=== PATIENT | female | born 1960 | race Caucasian/White ===

== ENCOUNTER 2018-06-22 13:06 | Inpatient (IN) | payer OTHER ==
[~2018-06-22] VITALS: Ht 160 cm; Wt 110.9 kg
--- NOTE | ~2018-06-22 | EC ---
PATIENT:DENISE VILLANUEVA DATE OF SERVICE: 06/22/18 SEX: F MEDICAL RECORD: [id number] DATE OF : 62 LOCATION:D.M2 D.211 AGE OF PATIENT: 57 ADMISSION DATE: 06/22/18 REFERRING PHYSICIAN: INTERPRETING PHYSICIAN: JOSE BENOIT MD ECHOCARDIOGRAM REPORT ECHO CHARGES 4 ECHO COMPLETE Date: 06/24/18 CLINICAL DIAGNOSIS: CP ECHOCARDIOGRAPHIC MEASUREMENTS (adult normal given) AC root (d.<3.7cm) 3.6 cm LV Septum d (<1.2 cm> 1.9 cm Valve Excursion 2.2 cm LV Septum (systole) 2.3 cm Left Atria (s.<4.0cm> 3.4 cm LVPW d(<1.2cm) 1.6 cm RV (d.<2.3cm) 1.9 cm LVPW (sytole) 2.3 cm LV diastole(<5.6CM) 3.7 cm MV E-F(>70mm/sec) cm LV systole 2.4 cm LVOT Diameter 2.2 cm MV exc.(>10mm) cm Est.ejection fraction (50-75%) % DOPPLER: LVIT cm/sec A 89.0 cm/sec E 56.0 cm/sec LA cm/sec RVSP mmHg LVOT 150 cm/sec AOP1/2T m/s Asc. Ao 159 cm/sec RVOT 95.0 cm/sec RA cm/sec PA 122 cm/sec AV Gradient Peak 10.1 mmHg AV Mean 4.2 mmHg AV Area 3.3 cm MV Gradient Peak 3.6 mmHg MV Mean 1.6 mmHg MV Area cm COMMENTS: Preparer Making Department: 1 ROBERTH COLEDSOE Housekeeping Room Attendant: 1 Dr. Benoit TAPE# PACS Pericardial Effusion N DATE OF SERVICE: 06/24/2018 PROCEDURE: Echocardiogram. FINDINGS: 1. Left ventricular chamber size is within normal limits. Left ventricular systolic function is normal. Overall ejection fraction estimated at 55%. 2. Left atrium, right atrium, and right ventricle chamber sizes are within normal limits. 3. Valvular structures have normal structure and motion. ECHOCARDIOGRAM REPORT [id number] DENISE VILLANUEVA 4. Doppler interrogation reveals no significant valvular insufficiency or stenosis. 5. No evidence of pericardial effusion or left ventricular thrombus. TRANSINT:[id number] Voice Confirmation ID: [id number] DOCUMENT ID: [id number] JOSE BENOIT MD CC: [id number] DICTATION DATE: 06/24/18 1122 AGRONOMY TEACHER: 06/24/18 1202 ADM IN [place] [id number] [place] [id number]
--- NOTE | ~2018-06-22 | MORECARE ---
CASE MANAGEMENT DISCHARGE SUMMARY PATIENT: DENISE VILLANUEVA UNIT: [id number] ADM DATE: 06/22/18 AGE: 57 : 62 SEX: F ROOM/BED: D.0834 AUTHOR: DEEP MCRAE PHYSICIAN: REFERRING PHYSICIAN: RAVIN BAJWA MD DATE OF SERVICE: 06/29/18 Discharge Plan Patient Name: DENISE VILLANUEVA Facility: [facility]:[place] : 1960 Planned Disposition: Home Anticipated Discharge Date: 06/27/18 Discharge Date: 06/27/2018 Expected LOS: 5 Initial Reviewer: [email or web address] Initial Review Date: 06/29/2018 Generated: 06/29/18 11:20 am Patient Name: DENISE VILLANUEVA Page 31512 at 1020 All edits/amendments must be made on the electronic document DICTATION DATE: 06/29/18 1019 RETINA SUBSPECIALIST: LINDSAY 06/29/18 1019 RPT#: [id number] DC DATE:06/27/18 STATUS: DIS IN [facility] [address] [place] [address] END OF REPORT
--- NOTE | ~2018-06-22 | ST ---
PATIENT:DENISE VILLANUEVA MEDICAL RECORD: [id number] SEX: F LOCATION:[facility] D211 ORDER #: ADMISSION DATE: 06/22/18 AGE OF PATIENT: 57 REFERRING PHYSICIAN: INTERPRETING PHYSICIAN: JOSE BEARD MD DATE OF SERVICE: PROCEDURE: Nuclear stress test. INDICATION: Chest pain of unknown etiology. DESCRIPTION: She was exercised on standard Lexiscan protocol with 26 mCi injected at peak stress, 8 mCi were used previously for rest images. FINDINGS: Gated SPECT reveals preserved ejection fraction at 81% with good wall motion and thickening and brightening throughout all segments. SPECT imaging Cardiolite was used as myocardial fusion agent. There is homogeneous uptake throughout all segments at rest and stress with no evidence of inducible ischemia or previous infarction. OVERALL IMPRESSION: 1. This is a normal nuclear stress test with no evidence of inducible ischemia or previous infarction. 2. Gated SPECT reveals a preserved ejection fraction at 81%. In this patient with ongoing symptomatology, the current scan does not suggest the presence of hemodynamically significant coronary artery disease. Evaluate noncardiac etiology of chest pain. TRANSINT:[id number] Voice Confirmation ID: [id number] DOCUMENT ID: [id number] JOSE BEARD MD CC: [id number] DICTATION DATE: 06/26/18 1429 CHRISTMAS TREE GRADER: 06/27/18 0142 ADM IN [facility] [address] [place] [address]
--- NOTE | ~2018-06-22 | MORECARE ---
CASE MANAGEMENT DISCHARGE SUMMARY PATIENT: DENISE VILLANUEVA UNIT: [id number] ADM DATE: 06/22/18 AGE: 57 : 62 SEX: F ROOM/BED: D.1453 AUTHOR: DEEP MCRAE PHYSICIAN: REFERRING PHYSICIAN: RAVIN BAJWA MD DATE OF SERVICE: 06/29/18 Discharge Plan Patient Name: DENISE IVLLANUEVA Facility: [facility]:[place] : 1960 Planned Disposition: Home Anticipated Discharge Date: 06/27/18 Discharge Date: 06/27/2018 Expected LOS: 5 Initial Reviewer: [email or web address] Initial Review Date: 06/29/2018 Generated: 06/29/18 11:29 am Last DP export: 06/29/18 9:20 Patient Name: DENISE VILLANUEVA Page 99202 at 1029 All edits/amendments must be made on the electronic document DICTATION DATE: 06/29/18 1029 RESEARCH AND DEVELOPMENT TECHNICIAN: LINDSAY 06/29/18 1029 RPT#: [id number] DC DATE:06/27/18 STATUS: DIS IN [facility] [address] [place] [address] END OF REPORT
[~2018-06-22 13:06] MED LIST: ADDERALL 30 MG30 MG PO; ALDACTONE100 MG PO; APRISO0.375 GM PO; ARMOUR THYROID90 MG PO; BUPROPION XL300 MG PO; PROMETRIUM200 MG PO; PROTONIX40 MG PO; VICTOZA INJ; VITAMIN D31000 UNI2 PO; [UNRECOGNIZED DRUG - OTHER] PO
[2018-06-22] MEDS ORDERED: CARDURA1 MG PO (13:34)
[2018-06-22] MEDS ORDERED: GLUCOTROL 5 MG T5 MG PO (13:34)
[2018-06-22] MEDS ORDERED: METHOTREXATE2.5 MG PO (13:35)
[2018-06-22] MEDS ORDERED: FOLIC ACID1 MG PO (13:35)
[2018-06-22] MEDS ORDERED: GEMFIBROZIL600 MG PO (13:35)
[2018-06-22] MEDS ORDERED: REQUIP3 MG PO (13:35)
[2018-06-22 15:13] LABS: BASOPHILS 0.7 % (0-2); HEMATOCRIT 35.3 % (36.0-48.0); HEMOGLOBIN 11.4 g/dL (12-16); LYMPHOCYTES 20.1 % (15-50); MCH 29.5 pg (26.0-34.0); MCHC 32.3 g/dL (31.0-37.0); MCV 91.2 fL (80.0-100.0); MEAN PLATELET VOLUME 8.9 fL (7.4-10.4); MONOCYTES 11.9 % (2-11); NEUTROPHILS 61.3 % (40-80); RBC 3.87 10x6/uL (4.00-5.40); RDW 15.8 % (11.5-14.5); WBC 9.8 10x3/uL (4.8-10.8)
[2018-06-22 15:20] LABS: PLATELET COUNT 423 10x3/uL (130-400)
[2018-06-22 15:41] LABS: ALKALINE PHOSPHATASE 108 U/L (46-116); ALT (SGPT) 23 U/L (10-68); BILIRUBIN - TOTAL 0.34 mg/dL (0.2-1.3); CALC OSMOLALITY 274 mosm/kg (275-300); CALCIUM 9.7 mg/dL (8.5-10.1); CARBON DIOXIDE 24.6 mmol/L (21.0-32.0); CHLORIDE - SERUM 101 mmol/L (98-107); CREATININE - SERUM 1.2 mg/dL (0.6-1.3); GLUCOSE 76 mg/dL (74-106); POTASSIUM - SERUM 4.2 mmol/L (3.5-5.1); PROTEIN - SERUM 8.7 g/dL (6.4-8.2); SODIUM 138 mmol/L (136-145); UREA NITROGEN 13 mg/dL (7-18); eGFR NON AFRICAN AMERICAN 49 mL/min (90-120)
[2018-06-22 15:48] LABS: MAGNESIUM - SERUM 1.9 mg/dL (1.8-2.4); TROPONIN-I < 0.017 ng/mL (0.000-0.060)
[2018-06-22 17:45] VITALS: BP 120/73
[2018-06-22 18:00] VITALS: BP 131/96
[2018-06-22 19:57] VITALS: BP 151/100
[2018-06-22 20:00] VITALS: BP 133/75; BP 141/89
[2018-06-22 23:09] VITALS: BP 141/89; BMI 44.5
[2018-06-23] VITALS: BP 131/78
[2018-06-23 05:49] LABS: ANION GAP 17.5 mmol/L (8-16); CALCIUM 9.5 mg/dL (8.5-10.1); CARBON DIOXIDE 24.6 mmol/L (21.0-32.0); CREATININE - SERUM 1.2 mg/dL (0.6-1.3); POTASSIUM - SERUM 4.1 mmol/L (3.5-5.1)
[2018-06-23 06:47] LABS: BASOPHILS 0.1 % (0-2); EOSINOPHILS 0 % (0-7); HEMOGLOBIN 11.2 g/dL (12-16); IMMATURE GRANULOCYTES 0.5 % (0-5); LYMPHOCYTES 9.3 % (15-50); MCH 29.4 pg (26.0-34.0); MCHC 32.9 g/dL (31.0-37.0); MEAN PLATELET VOLUME 8.9 fL (7.4-10.4); MONOCYTES 7.2 % (2-11); NEUTROPHILS 82.9 % (40-80); PLATELET COUNT 406 10x3/uL (130-400); RBC 3.81 10x6/uL (4.00-5.40); RDW 15.4 % (11.5-14.5)
[2018-06-23 06:51] LABS: MCV 89.2 fL (80.0-100.0); WBC 13.4 10x3/uL (4.8-10.8)
[2018-06-23 08:30] VITALS: BP 97/52
[2018-06-23 12:08] VITALS: BP 96/64
[2018-06-23 12:30] VITALS: BMI 43.7
[2018-06-23 14:35] VITALS: Ht 160 cm; Wt 110.9 kg
[2018-06-23 15:44] LABS: APPEARANCE CLEAR (CLEAR); BILIRUBIN NEGATIVE (NEGATIVE); COLOR YELLOW (YELLOW); GLUCOSE NEGATIVE (NEGATIVE); KETONE NEGATIVE (NEGATIVE); NITRITE NEGATIVE (NEGATIVE); PROTEIN NEGATIVE (NEGATIVE); UROBILINOGEN NORMAL (NORMAL)
[2018-06-23 15:46] LABS: BACTERIA FEW /hpf (NONE SEEN); EPITHELIAL CELLS OCC /hpf (0-5); RED CELLS - URINE 0-5 /hpf (0-5); WHITE CELLS - URINE 0-5 /hpf (0-5)
[2018-06-23 16:08] VITALS: BP 112/79
[2018-06-23 16:55] LABS: % SATURATION 11 % (15-55); IRON 42 ug/dl (35-150); TOTAL IRON BIND CAPACITY 376 ug/dl (260-445); UNSAT IRON BIND CAPACITY 334 ug/dl (150-375)
[2018-06-23 18:49] LABS: ERYTHROCYTE SEDIMENTATION RATE 64 mm/hr (0-30)
[2018-06-23 21:09] VITALS: BP 126/73
[2018-06-24 04:00] VITALS: BP 121/75
[2018-06-24 06:00] LABS: BASOPHILS 0.7 % (0-2); EOSINOPHILS 3.4 % (0-7); HEMATOCRIT 35.2 % (36.0-48.0); HEMOGLOBIN 11.4 g/dL (12-16); IMMATURE GRANULOCYTES 0.4 % (0-5); LYMPHOCYTES 20.7 % (15-50); MCHC 32.4 g/dL (31.0-37.0); MCV 89.6 fL (80.0-100.0); MEAN PLATELET VOLUME 8.7 fL (7.4-10.4); MONOCYTES 8.3 % (2-11); NEUTROPHILS 66.5 % (40-80); PLATELET COUNT 380 10x3/uL (130-400); RBC 3.93 10x6/uL (4.00-5.40); RDW 15.5 % (11.5-14.5)
[2018-06-24 06:36] LABS: WBC 9.2 10x3/uL (4.8-10.8)
[2018-06-24 06:38] LABS: ANION GAP 14.1 mmol/L (8-16); CALCIUM 9.4 mg/dL (8.5-10.1); CARBON DIOXIDE 27.5 mmol/L (21.0-32.0); CREATININE - SERUM 1.2 mg/dL (0.6-1.3); POTASSIUM - SERUM 3.6 mmol/L (3.5-5.1)
[2018-06-24 08:20] LABS: FOLATE (FOLIC ACID) - SERUM 11.6 ng/mL (>3.0)
[2018-06-24 08:25] VITALS: BP 116/76
[2018-06-24 12:15] VITALS: BP 106/76
[2018-06-24 16:15] VITALS: BP 114/70
[2018-06-24 20:18] VITALS: BP 122/75
[2018-06-25 00:29] VITALS: BP 102/60
[2018-06-25 04:00] VITALS: BP 106/78
[2018-06-25 06:01] LABS: BASOPHILS 0.9 % (0-2); EOSINOPHILS 8.5 % (0-7); HEMOGLOBIN 11.8 g/dL (12-16); IMMATURE GRANULOCYTES 0.6 % (0-5); LYMPHOCYTES 22.2 % (15-50); MCHC 32.8 g/dL (31.0-37.0); MCV 88.5 fL (80.0-100.0); MEAN PLATELET VOLUME 9.1 fL (7.4-10.4); MONOCYTES 13.5 % (2-11); NEUTROPHILS 54.3 % (40-80); PLATELET COUNT 406 10x3/uL (130-400); RBC 4.07 10x6/uL (4.00-5.40); RDW 15.4 % (11.5-14.5); WBC 8.2 10x3/uL (4.8-10.8)
[2018-06-25 06:23] LABS: ANION GAP 16.8 mmol/L (8-16); CALCIUM 9.3 mg/dL (8.5-10.1); CARBON DIOXIDE 25.7 mmol/L (21.0-32.0); CREATININE - SERUM 1.3 mg/dL (0.6-1.3); POTASSIUM - SERUM 3.5 mmol/L (3.5-5.1)
[2018-06-25 07:37] VITALS: BP 123/84
[2018-06-25 12:14] LABS: ANA REFLEX - DIRECT Negative (Negative)
[2018-06-25 16:04] VITALS: BP 104/58
[2018-06-25 20:45] VITALS: BP 129/68
[2018-06-26 00:17] VITALS: BP 99/59
[2018-06-26 03:11] LABS: ANGIOTENSIN CONVERTING ENZYME 60 U/L (14-82)
[2018-06-26 04:04] LABS: BASOPHILS 0.2 % (0-2); EOSINOPHILS 0.4 % (0-7); HEMATOCRIT 36.3 % (36.0-48.0); HEMOGLOBIN 12.1 g/dL (12-16); IMMATURE GRANULOCYTES 0.4 % (0-5); LYMPHOCYTES 14.7 % (15-50); MCH 29.1 pg (26.0-34.0); MCHC 33.3 g/dL (31.0-37.0); MCV 87.3 fL (80.0-100.0); MEAN PLATELET VOLUME 8.8 fL (7.4-10.4); MONOCYTES 8.9 % (2-11); NEUTROPHILS 75.4 % (40-80); PLATELET COUNT 367 10x3/uL (130-400); RBC 4.16 10x6/uL (4.00-5.40)
[2018-06-26 04:08] LABS: ANION GAP 15.4 mmol/L (8-16); CALCIUM 9.7 mg/dL (8.5-10.1); CARBON DIOXIDE 26.1 mmol/L (21.0-32.0); CREATININE - SERUM 1.2 mg/dL (0.6-1.3); POTASSIUM - SERUM 3.5 mmol/L (3.5-5.1)
[2018-06-26 04:21] LABS: WBC 10.9 10x3/uL (4.8-10.8)
[2018-06-26 05:04] VITALS: BP 108/74
[2018-06-26 09:26] VITALS: BP 141/97
[2018-06-26 12:14] VITALS: BP 127/82
[2018-06-26 16:18] VITALS: BP 122/73
[2018-06-26 20:00] VITALS: BP 133/70
[2018-06-26 20:07] LABS: MYCOPLASMA PNEUMO IGG 167 U/mL (0-99)
[2018-06-27] VITALS: BP 103/52
[2018-06-27 04:00] VITALS: BP 119/73
[2018-06-27 04:13] LABS: IMMUNOGLOBULIN E 7 IU/mL (0-100)
[2018-06-27 05:08] LABS: ANION GAP 11.8 mmol/L (8-16); CALCIUM 9.4 mg/dL (8.5-10.1); CARBON DIOXIDE 29.3 mmol/L (21.0-32.0); CREATININE - SERUM 1.3 mg/dL (0.6-1.3); POTASSIUM - SERUM 3.1 mmol/L (3.5-5.1)
[2018-06-27 05:33] LABS: BASOPHILS 0.3 % (0-2); EOSINOPHILS 0.8 % (0-7); HEMATOCRIT 33.2 % (36.0-48.0); HEMOGLOBIN 10.9 g/dL (12-16); IMMATURE GRANULOCYTES 0.4 % (0-5); LYMPHOCYTES 24.3 % (15-50); MCHC 32.8 g/dL (31.0-37.0); MCV 88.3 fL (80.0-100.0); MEAN PLATELET VOLUME 9.1 fL (7.4-10.4); MONOCYTES 8.6 % (2-11); NEUTROPHILS 65.6 % (40-80); PLATELET COUNT 323 10x3/uL (130-400); RBC 3.76 10x6/uL (4.00-5.40); RDW 15.1 % (11.5-14.5); WBC 11.2 10x3/uL (4.8-10.8)
[2018-06-27 08:07] VITALS: BP 124/76
[2018-06-27] MEDS ORDERED: OMNICEF300 MG PO (11:31)
[2018-06-27] MEDS ORDERED: FEXOFENADINE H180 MG PO (11:31)
[2018-06-27] MEDS ORDERED: VIBRAMYCIN 100100 MG PO (11:31)
[2018-06-27] MEDS ORDERED: SINGULAIR10 MG PO (11:32)
[2018-06-27] MEDS ORDERED: XOPENEX 1.1.25 MG/3 UPD (11:32)
[2018-06-27] MEDS ORDERED: PROTONIX40 MG PO (11:33)
[2018-06-27] MEDS ORDERED: PREDNISONE20 MG PO (11:34)
[2018-06-27] MEDS ORDERED: ALBUTEROL SULF8.5 GM INH (11:35)
[2018-06-27] MEDS ORDERED: SYMBICORT 16010.2 GM INH (11:37)
[2018-06-27 15:39] VITALS: BP 132/72
[2018-06-28 15:08] LABS: FUNGAL - ASP FLAVUS Negative (Neg:<1:1); FUNGAL - ASP NIGER Negative (Neg:<1:1); FUNGAL - ASPER FUMIGATUS Negative (Neg:<1:1)
[2018-06-29 14:12] LABS: ANCA - ANTIMYELOPEROXIDASE <9.0 U/mL (0.0-9.0); ANCA - ANTIPROTEINASE 3 4.3 U/mL (0.0-3.5); ANCA - ATYPICAL <1:20 titer (Neg:<1:20); ANCA - CYTOPLASMIC <1:20 titer (Neg:<1:20); ANCA - PERINUCLEAR <1:20 titer (Neg:<1:20)
== END 2018-06-27 16:15 | disposition home or self-care (01) | DRG 178 ==
LOC: D.ER 13:06 → D.M2 18:01 → D.EDHOLD 18:01 → D.M2 19:35
PROVIDERS: Emergency Medicine; Internal Medicine Nephrology; Internal Medicine Pulmonary Disease
DX: J15.6 Pneumonia due to other Gram-negative bacteria (principal); K51.90 Ulcerative colitis, unspecified, without complications; N17.9 Acute kidney failure, unspecified; R91.8 Other nonspecific abnormal finding of lung field; I77.810 Thoracic aortic ectasia; G47.33 Obstructive sleep apnea (adult) (pediatric); J30.9 Allergic rhinitis, unspecified; I10 Essential (primary) hypertension; E11.9 Type 2 diabetes mellitus without complications; M06.9 Rheumatoid arthritis, unspecified; E03.9 Hypothyroidism, unspecified; F98.8 Other specified behavioral and emotional disorders with onset usually occurring in childhood and adolescence; G25.81 Restless legs syndrome; K21.9 Gastro-esophageal reflux disease without esophagitis; D50.9 Iron deficiency anemia, unspecified; M35.9 Systemic involvement of connective tissue, unspecified

== ENCOUNTER → 2018-10-13 10:26 | Outpatient (CLI) | payer OTHER ==
[~2018-10-13 10:26] MED LIST changes: +ALBUTEROL SULF8.5 GM INH; +CARDURA1 MG PO; +FEXOFENADINE H180 MG PO; +FOLIC ACID1 MG PO; +GEMFIBROZIL600 MG PO; +GLUCOTROL 5 MG T5 MG PO; +METHOTREXATE2.5 MG PO; +OMNICEF300 MG PO; +PREDNISONE20 MG PO; +REQUIP3 MG PO; +SINGULAIR10 MG PO; +SYMBICORT 16010.2 GM INH; +VIBRAMYCIN 100100 MG PO; +XOPENEX 1.1.25 MG/3 UPD
== END | disposition home or self-care (01) ==
LOC: D.RT 10:26
DX: J45.909 Unspecified asthma, uncomplicated (principal)

== ENCOUNTER 2018-11-16 11:25 | Outpatient (CLI) | payer OTHER ==
--- NOTE | ~2018-11-16 | HEMODYNAMI ---
PATIENT:DENISE VILLANUEVA MEDICAL RECORD: [id number] : 62 LOCATION:[facility] ADMISSION DATE: 11/16/18 Generatedon:11/16/201814:43 Patient name: DENISE VILLANUEVA Patient #: [id number] SSN: : 1960 Date of study: 11/16/2018 Page: Of Hemodynamic Procedure Report Patient Data Patient Demographics Procedure consent was obtained First Name: DENISE Gender: Female Last Name: KAY : 1960 Middle Initial: F Age: 58 year(s) Patient #: [id number] Race: Unknown Additional ID: [id number] Contact details Address: [place] [address] State: [place] City: [place] Zip code: [address] Past Medical History Allergies Allergen Reaction Date Comments Reported Other allergy 11/16/2018 Codeine, Hydrocodone, Hydromorphine, Dilaudid Admission Admission Data Admission Date: 11/16/2018 Admission Time: 11:25 Admit Source: Other Lab Results Lab Result Date: 11/16/2018 Lab Result Time: 11:55 Biochemistry Name Units Result Min Max BUN mg/dl 19 --(----)*- 7 18 Creatinine mg/dl 1.1 --(--*-)-- 0.6 1.3 CBC Name Units Result Min Max Hematocrit % 32.9 *-(----)-- 42 54 Hemoglobin g/dl 10.2 *-(----)-- 13.5 17.5 Procedure Procedure Types Cath Procedure Diagnostic Procedure LHC LHC w/Coronaries Procedure Description Procedure Date Procedure Date: 11/16/2018 Procedure Start Time: 14:12 Procedure End Time: 14:42 Procedure Staff Name Function Herb Duron MD Performing Physician Eric Simon RT Monitor Rosanna Figueroa RT Scrub Estephanie Santo RN Nurse Garry Gay RT Regional Loss Prevention Manager Tim Cantu MD Additional personnel Procedure Data Cath Procedure Fluoroscopy Diagnostic fluoroscopy Total fluoroscopy Time: 1.8 time: 1.8 min min Diagnostic fluoroscopy Total fluoroscopy dose: 563 dose: 563 mGy mGy Contrast Material Contrast Material Type Amount (ml) Isovue 300 66 Entry Location Entry Primary Successful Side Size Upsize Upsize Entry Closure Succes sful Closure Location (Fr) 1 (Fr) 2 (Fr) Remarks Device Remarks Femoral Right 5 Fr Exoseal artery Estimated blood loss: 5 ml Diagnostic catheters Device Type Used For End Catheter Placement MULTIPACK JL 4.0 5Fr Procedure catheter MULTIPACK 3DRC 5Fr Procedure catheter MULTIPACK Pigtail 5 Fr Procedure catheter Procedure Complications No complications Procedure Medications Medication Administration Route Dosage Oxygen etCO2 Nasal cannula 2 l/min Lidocaine 2% added to field 20 Heparin Flush Bag added to field 2 bags (1000units/500ml NS) 0.9% NaCl I.V. 100 ml/hr Radial Cocktail I.A. 1 syringe (Verapamil 2mg/Nitro 400mcg/Heparin 1500units) Versed I.V. 2 mg Versed I.V. 2 mg Versed I.V. 2 mg Versed I.V. 2 mg Refer to Anesthesia Notes for Sedation Medications Hemodynamics Rest HGB: 10.2 (g/dl) Heart Rate: 83 (bpm) Pressure Samples Time Site Value (mmHg) Purpose Heart Use Rate(bpm) 14:31 LV 172/11,38 Snapshot 74 14:32 AO 171/99(101) Pullback 91 Gradients Valve Time Site Site 2 Mean SEP/DFP Peak To Heart Use 1 (mmHg) (sec/min) Peak Rate (mmHg) (bpm) Aortic 14:32 LV AO 66 39 91 171/99(101) Calculations Valve P-P Mean Valve Index Valve Source Name Gradient Area Flow (cm2) Aortic 66 66 Snapshots Pre Cath Intra NCS Post Cath Vital Signs Time Heart Resp SPO2 etCO2 NIBP (mmHg) Rhythm Pain Sedation Rate (ipm) (%) (mmHg) Status Level (bpm) 13:56:49 80 14 95 0 138/92(114) NSR 0 (11) 10(A) , No pain 14:00:55 81 24 99 39.6 141/94(122) NSR 0 (11) 10(A) , No pain 14:05:02 80 30 97 38.1 149/89(122) NSR 0 (11) 10(A) , No pain 14:09:15 90 24 96 42.6 154/86(117) NSR 0 (11) 10(A) , No pain 14:13:26 91 19 96 36.7 167/98(116) NSR 0 (11) 10(A) , No pain 14:17:42 96 10 95 32.9 142/107(136) NSR 0 (11) 10(A) , No pain 14:21:52 90 12 93 38.1 145/92(121) NSR 0 (11) 10(A) , No pain 14:26:55 95 24 96 42.6 153/87(103) NSR 0 (11) 10(A) , No pain 14:32:00 93 23 94 38.1 128/116(122) NSR 0 (11) 9(A) , No pain 14:36:55 90 20 96 20.2 143/90(134) NSR 0 (11) 10(A) , No pain Medications Time Medication Route Dose Verified Delivered Reason Notes Effectiveness by by 13:58:48 Oxygen etCO2 2 l/min Herb Hummel used for Nasal [facility] Deniz Santo RN procedure cannula 13:58:55 Lidocaine 2% added 20ml Herb Estevez for local to vial [facility] anesthetic field MD KIRKLAND 13:59:04 Heparin Flush added 2 bags Herb Estevez used for Bag to [facility] procedure (1000units/500ml field MD KIRKLAND NS) 13:59:13 0.9% NaCl I.V. 100 Herb Hummel Per ml/hr [facility] Santo RN physician 14:01:42 Radial Cocktail I.A. 1 Herb Estevez for (Verapamil syringe [facility] vasodilation 2mg/Nitro MD KIRKL[place] 400mcg/Heparin 1500units) 14:10:54 Versed I.V. 2 mg Herb Hummel for sedation [facility] Santo RN, MD 14:14:55 Versed I.V. 2 mg eHrb Hummel for sedation [facility] Santo RN, MD 14:17:58 Versed I.V. 2 mg Herb Hummel for sedation [facility] Santo RN, MD 14:20:01 Versed I.V. 2 mg Herb Hummel for sedation [facility] Santo RN, MD 14:27:40 Refer to Herb Hummel Anesthesia Notes [facility] Deniz Santo RN for Sedation Medications Procedure Log Time Note 13:30:43 Informed consent obtained and on chart 13:43:42 Admit Source: Other 13:45:37 Diagnostic Cath status Elective 13:45:38 Garry Gay RT(R) (CV) sent for patient. Start room use. 13:45:39 Time tracking: Regular hours (M-F 7:00 - 5:00) 13:45:42 Plan of Care:Hemodynamics will remain stable., Cardiac rhythm will remain stable., Comfort level will be maintained., Respiratory function will remain adequate., Patient/ family verbilizes understanding of procedure., Procedure tolerated without complication., Recovers from procedure without complications.. 13:47:15 H&P Date Dictated: 11/10/2018 Within 30 days and on chart., H&P Addendum completed by physician on day of procedure. (MUST COMPLETE FOR ALL OUTPATIENTS). 13:49:00 Patient allergic to Other allergyCodeine, Hydrocodone, Hydromorphine, Dilaudid 13:49:32 Lab Result : BUN 19 mg/dl 13:49:32 Lab Result : Creatinine 1.1 mg/dl 13:49:32 Lab Result : Hemoglobin 10.2 g/dl 13:49:32 Lab Result : Hematocrit 32.9 % 13:49:34 Lab results completed and on chart. 13:55:45 Vital chart was started 13:55:54 Patient received from Pre/Post Procedure Room to CCL 2 Alert and oriented. Tansferred to table in Supine position. 13:55:55 Warm blankets applied, and cat hugger turned on for patient comfort. 13:55:56 Correct patient and procedure confirmed by team. 13:55:56 ECG and BP/O2 sat monitors applied to patient. 13:58:48 Oxygen 2 l/min etCO2 Nasal cannula was administered by Estephanie Santo RN; used for procedure; 13:58:55 Lidocaine 2% 20ml vial added to field was administered by Herb Duron MD; for local anesthetic; 13:59:04 Heparin Flush Bag (1000units/500ml NS) 2 bags added to field was administered by Herb Duron MD; used for procedure; 13:59:13 0.9% NaCl 100 ml/hr I.V. was administered by Estephanie Santo RN; Per physician; 14:01:42 Radial Cocktail (Verapamil 2mg/Nitro 400mcg/Heparin 1500units) 1 syringe I.A. was administered by Herb Duron MD; for vasodilation; 14:02:23 Baseline sample Acquired. 14:02:28 Rhythm: sinus rhythm 14:02:29 Full Disclosure recording started 14:02:43 Pre-procedure instructions explained to patient. 14:02:44 Pre-op teaching completed and patient verbalized understanding. 14:02:45 Family in waiting room. 14:02:55 Patient NPO since Breakfast. 14:03:29 Is the patient allergic to Iodine/contrast media? No. 14:03:30 Is patient on blood thinner?No 14:03:31 Patient diabetic? Yes. 14:03:32 If diabetic: On Metformin? No 14:03:51 Previous problem with sedation/anesthesia? Yes No Opiods 14:03:53 Snore? Yes 14:03:54 Sleep apnea? Yes 14:03:55 Deviated septum? No 14:03:56 Opens mouth fully? Yes 14:03:57 Sticks out tongue? Yes 14:04:00 Airway obstruction? Yes Asthma 14:04:03 Dentures? No ? 14:04:06 Pre procedure: right dorsailis pedis pulse 2+ Normal; easily identifiable; not easily obliterated 14:04:07 Modified Micheal's test Ulnar < 7 seconds 14:04:08 Patient pain scale 0/10 ?. 14:04:14 IV patent on arrival in left antecubital with 0.9% NaCl at [facility]. 14:04:17 Right Radial & Right Groin area was prepped with chlora-prep and draped in sterile fashion 14:04:18 Alarms reviewed by R. N. 14:04:18 Sharps counted by scrub and verified by R.N. 14:04:37 Use device set Radial Dx or PCI 14:04:38 ACIST Syringe (04402) opened to sterile field. 14:04:39 Medline Cath Pack ([id number]) opened to sterile field. 14:04:39 Bag Decanter () opened to sterile field. 14:04:40 ACIST Hand Control (82810) opened to sterile field. 14:04:40 ACIST Manifold (28638) opened to sterile field. 14:04:41 Tegaderm 4 x 4 (1626W) opened to sterile field. 14:04:41 MBrace Wrist Support ([id number]) opened to sterile field. 14:04:42 DIAGNOSTIC WIRE .035 260cm J wire (168554) opened to sterile field. 14:04:43 SHEATH 6FR Slender (85-7716) opened to sterile field. 14:10:29 Physician arrived 14:: --------ALL STOP TIME OUT------ 14::30 Final Timeout: patient, procedure, and site verified with staff and physician. All members of the team are in agreement. 14:10:31 Right Radial & Right Groin site verified by team. 14:10:34 Maximum allowable Isovue 300 dose 300ml. Physician notified. (300ml for normal creatinines. For patients with creatinine of 1.7 or higher multiply weight(kg) x 5 divided by creatinine.) 14:10:37 Fire Safety Assessment: A--An alcohol-based skin anteseptic being used preoperatively., C--Open oxygen or nitrous oxide is being used., D--An ESU, laser, or fiber-optic light is being used. 14:10:39 Physical assessment completed. ASA score P 3 - A patient with severe systemic disease as per Herb Duron MD. 14:10:42 Sedation plan: IV Moderate Sedation Medication:Versed 14:10:54 Versed 2 mg I.V. was administered by Estephanie Santo RN; for sedation; 14:12:19 Zero performed for pressure channel P1 14:12:41 Procedure started. 14:12:46 Local anesthetic to right radial artery with Lidocaine 2% by Herb Duron MD.INITIAL ACCESS ONLY 14:14:55 Versed 2 mg I.V. was administered by Estephanie Santo RN; for sedation; 14:17:58 Versed 2 mg I.V. was administered by Estephanie Santo RN; for sedation; 14:20:01 Versed 2 mg I.V. was administered by Estephanie Santo RN; for sedation; 14:20:35 Procedure delayed due to: Pt unable to control restless legs. Anesthesia concent being obtained by family. 14:21:05 Tim Cantu MD present and monitoring patient for TIVA. 14:21:10 2nd TIME OUT done with Anesthesia 14:22:26 Use device set Multipack Set 14:22:35 SHEATH 5FR [place] (NNO685) opened to sterile field. 14:22:37 DIAGNOSTIC Multipack 5Fr catheter set ([id number]) opened to sterile field. 14::43 Local anesthetic to right femoral artery with Lidocaine 2% by Herb Duron MD.ADDITIONAL ACCESS 14::43 A 5 Fr sheath was inserted into the Right Femoral artery 14:23:46 Zero performed for pressure channel P1 14:24:51 Zero performed for pressure channel P1 14:24:55 Zero performed for pressure channel P1 14::24 A MULTIPACK JL 4.0 5Fr catheter was advanced over the wire and used for Procedure. 14:27:40 Refer to Anesthesia Notes for Sedation Medications was administered by Estephanie Santo RN; ; 14:27:52 LCA angiography performed. 14:28:18 Catheter exchanged over wire. 14:28:27 A MULTIPACK 3DRC 5Fr catheter was advanced over the wire and used for Procedure. 14:29:53 RCA angiography performed. 14:30:57 Catheter exchanged over wire. 14:31:00 A MULTIPACK Pigtail 5 Fr catheter was advanced over the wire and used for Procedure. 14:31:48 LV gram done using LEWIS 14::51 Injector settings: Ml/sec: 10, Volume: 20, 14:31:52 LV hemodynamics recorded. 14:31:55 EF : 55 % 14:32:02 Catheter removed. 14:32:18 EXOSEAL 5Fr (EX500) opened to sterile field. 14:32:27 Sheath removed intact; hemostasis achieved with Exoseal to the Right Femoral artery. 14:32:28 Procedure ended.(Physican Out) 14:33:51 Fluoroscopy time 01.80 minutes. 14:33:55 Fluoroscopy dose: 563 mGy 14:33:55 Flurop Dose total: 563 14:33:58 Contrast amount:Isovue 300 66ml. 14:33:59 Sharps counted by scrub and verified by R.N. 14:34:00 Insertion/operative site no bleeding no hematoma. 14:34:02 Post-op/insertion site Right Femoral artery dressed using a 4 x 4 and Tegaderm. 14:34:05 Post right femoral artery:stable, soft, clean and dry 14:34:08 Post Procedure Pulses reassessed and unchanged 14:34:12 Post-procedure physical assessment completed. ASA score P 3 - A patient with severe systemic disease as per Herb Duron MD. 14:34:17 Post procedure rhythm: unchanged. 14:34:20 Estimated blood loss: 5 ml 14:34:22 Post procedure instruction explained to patient.Patient verbalizes understanding. 14:34:22 Patient needs reinforcement of post procedure teaching. 14:35:34 Procedure and supply charges have been captured, reviewed, submitted and are correct. 14:35:36 Procedure Complication : No complications 14:42:09 See physician's report for complete and final results. 14:42:10 Report given to Pre/Post Procedure Room. 14:42:12 Patient transfered to Pre/Post Procedure Room with Stretcher. 14:42:14 Procedure ended. 14:42:14 Full Disclosure recording stopped 14:42:20 End room use (Document Last) Device Usage Item Name Manufacture Quantity Catalog Hospital Part Current Minimal Lot# / Number Charge Number Stock Stock Serial# Code ACIST Acist 1 07565 803479 791083 732357 20 Syringe Medical (39358) Systems Inc Medline Medline 1 [id number] 418601 03961 555094 5 Cath Pack ([id number]) Bag Microtek 1 2001S 305987 67328 125647 5 Decanter Medical Inc. () ACIST Hand Acist 1 93849 417237 755781 237144 5 Control Medical (24503) Systems Inc ACIST Acist 1 94587 474464 621451 938309 5 Manifold Medical (32400) Systems Inc Tegaderm 4 3M 1 1626W 130222 048459 252032 5 x 4 (1626W) MBrace Advanced 1 140-0250-00 128249 44109 742378 5 Wrist Vascular Support Dynamics ([id number]) DIAGNOSTIC [facility] 1 457792 524315 970256 604881 30 WIRE .035 260cm J wire (291560) SHEATH 6FR Terumo 1 [id number] 407979 382431 148038 5 Slender (80-1060) SHEATH 5FR Terumo 1 UVV590 242710 373672 704909 5 [place] (IXC466) DIAGNOSTIC Cardinal 1 RW9964 435230 17859 013508 30 Multipack Health 5Fr catheter set (SG6615) MULTIPACK Cardinal 1 649049 5 JL 4.0 5Fr Health catheter MULTIPACK Cardinal 1 340258 5 3DRC 5Fr Health catheter MULTIPACK Cardinal 1 660992 5 Pigtail 5 Health Fr catheter EXOSEAL 5Fr Cardinal 1 EX500 606804 335241 646421 10 (EX500) Health Signature Audit [place] Stage Time Signature Unsigned Intra-Procedure 11/16/2018 Eric Simon 2:43:31 PM RT(R) Signatures Monitor : Eric Simon RT Signature : Date : Time : [place] [id number] [place] [address]
[2018-11-16 11:54] VITALS: BP 129/61; BMI 45.6
[2018-11-16] MEDS ORDERED: ASACOL HD800 MG PO (11:54)
[2018-11-16 12:20] LABS: BASOPHILS 0.6 % (0-2); EOSINOPHILS 4.3 % (0-7); HEMATOCRIT 32.9 % (36.0-48.0); HEMOGLOBIN 10.2 g/dL (12-16); IMMATURE GRANULOCYTES 0.6 % (0-5); LYMPHOCYTES 33.3 % (15-50); MCH 27.2 pg (26.0-34.0); MCV 87.7 fL (80.0-100.0); MONOCYTES 7.1 % (2-11); NEUTROPHILS 54.1 % (40-80); PLATELET COUNT 308 10x3/uL (130-400); RBC 3.75 10x6/uL (4.00-5.40); RDW 17.6 % (11.5-14.5); WBC 4.9 10x3/uL (4.8-10.8)
[2018-11-16 12:35] LABS: ANION GAP 9.4 mmol/L (8-16); CALCIUM 9.7 mg/dL (8.5-10.1); CARBON DIOXIDE 31.9 mmol/L (21.0-32.0); CREATININE - SERUM 1.1 mg/dL (0.6-1.3); POTASSIUM - SERUM 4.3 mmol/L (3.5-5.1)
--- NOTE | 2018-11-16 14:45 | NUR ---
RECIEVED TO ROOM VIA STRETCHER FROM LABORATORY SCIENTIST WITH 57 FR EXOSEAL TO R/GROIN CDI NO BLEEDING NOTED. PATIENT IS THRASHING ABOUT IN BED WITH STAFF HOLDING R/LEG STILL. PATIENT DENIED PAIN BUT STATES SHE HAS RESTLESS LEG AND IS UNABLE TO BE STILL. INSTRUCTED PATIENT OF NEED TO BE STILL AND HEALTH CONCERNS IS MOVING SHOULD MAKE AREA BLEED. 1500 PATIENT STILL MOVING ABOUT IN BED WITH STAFF AND FAMILY TRYING TO KEEP R/LEG STILL. FEMSTOP APPLIED FOR SECURITY NO PRESSURE ONLY SAFTEY DEVICE. PATIENT CRYING AND STATED I AM GONING TO ROLL OVER. IS TRYING VERY HARD TO ASSIST WITH PATIENT
--- NOTE | 2018-11-16 15:11 | NUR ---
FEMSTOP REAMINS TO R/GROIN CDI NO BLEEDING NOTED. PATIENT CONTINUES TO THRASH ABOUT IN BED CHEST PAIN IS DENIED
--- NOTE | 2018-11-16 15:21 | NUR ---
PATIENT TOLERATING SANDWICH AND PO FLUIDS WITH NAUSEA DENIED. FEMSTOP REMAINS TO R/GROIN CDI NO BLEEDING OR HEMATOMA NOTED. FAMILY IS AT BEDSIDE ASSISTING PATIENT TO BE STILL
--- NOTE | 2018-11-16 15:45 | NUR ---
PATIENT STARTING TO CALM DOWN WITH FAMILY AT BEDSIDE. R/GROIN REMAINS CDI AND VSS
--- NOTE | 2018-11-16 16:07 | NUR ---
PATIENT RESTING QUIETLY WITH FEMSTOP TO R/GROIN CDI NO BLEEDING OR HEMATOMA.
--- NOTE | 2018-11-16 16:14 | NUR ---
FEMSTOP REMOVED WITH NO BLEEDING OR SWELLING TO R/GROIN AREA IS SOFT TO PALPATE. CHEST PAIN IS DENIED. PIV REMOVED WITH DRESSING APPLIED. PATIENT IS UP TO GET DRESSED FOR DISCHARGE HOME NO DISTRESS
--- NOTE | 2018-11-16 16:36 | NUR ---
VERBAL AND WRITTEN DISCHARGE GONE OVER WITH PATIENT AND . R/GROIN IS CDI WITH CHEST PAIN DENIED. PATIENT LEFT VIA WC TO PARKING FOR TRANSPORT HOME NO DISTRESS
--- NOTE | 2018-11-17 12:26 | OP ---
PATIENT NAME: DENISE VILLANUEVA MEDICAL RECORD: [id number] :62 LOCATION:D.CAT ADMISSION DATE: SURGEON: ANTON PAZ MD DATE OF OPERATION: 11/16/2018 PROCEDURE: Left heart catheterization, selective coronary angiography, right femoral artery approach. CATHETERS: A 5-Bahamian sheath, 5/4 left and right Elias, 5/4 pig. The procedure was well tolerated. The patient was returned to oliver. Sheath was removed. ExoSeal device was placed. Please note, due to the patient's anxiety, despite generous IV sedation, she had body movements. Anesthesiology was consulted for TIVA. FINDINGS: Left ventriculography in 30-degree LEWIS view: Normal wall motion. Normal systolic function. CORONARY ANATOMY: LEFT MAIN: Left main is free of disease. LAD: Free of disease in the diagonal system. CIRCUMFLEX: Free of disease in the marginal system. RIGHT CORONARY ARTERY: Dominant artery, gives rise to PDA, free of disease. IMPRESSION: Normal LV systolic function. Normal coronary anatomy. Again, the patient did require TIVA for proceeding with the procedure. TRANSINT:[id number] Voice Confirmation ID: [id number] DOCUMENT ID: [id number] ANTON PAZ MD at 1226 CC: [id number] DICTATION DATE: 11/16/18 1445 CAMPGROUND CARETAKER: 11/16/18 1615 DEP CLI 11/16/18 [facility] [address] [place] [address]
== END 2018-11-16 16:38 | disposition home or self-care (01) ==
LOC: D.CATH 11:25
PROVIDERS: ATTEND Internal Medicine Interventional Cardiology
DX: I20.9 Angina pectoris, unspecified (principal); Z01.812 Encounter for preprocedural laboratory examination; F41.9 Anxiety disorder, unspecified

== ENCOUNTER → 2019-04-27 09:07 | Outpatient (CLI) | payer OTHER ==
[~2019-04-27 09:07] MED LIST changes: +ASACOL HD800 MG PO
[2019-04-27 10:05] LABS: BASOPHILS 0.4 % (0-2); EOSINOPHILS 3.1 % (0-7); HEMATOCRIT 34.2 % (36.0-48.0); HEMOGLOBIN 10.5 g/dL (12-16); IMMATURE GRANULOCYTES 0.3 % (0-5); LYMPHOCYTES 15.4 % (15-50); MCH 26.8 pg (26.0-34.0); MCHC 30.7 g/dL (31.0-37.0); MCV 87.2 fL (80.0-100.0); MEAN PLATELET VOLUME 9.1 fL (7.4-10.4); MONOCYTES 9.3 % (2-11); NEUTROPHILS 71.5 % (40-80); PLATELET COUNT 339 10x3/uL (130-400); RBC 3.92 10x6/uL (4.00-5.40); RDW 16.1 % (11.5-14.5); WBC 7.5 10x3/uL (4.8-10.8)
[2019-04-27 10:31] LABS: ALBUMIN 3.6 g/dL (3.4-5.0); ALKALINE PHOSPHATASE 158 U/L (46-116); ALT (SGPT) 26 U/L (10-68); BILIRUBIN - TOTAL 0.34 mg/dL (0.2-1.3); CALC OSMOLALITY 279 mosm/kg (275-300); CALCIUM 9.5 mg/dL (8.5-10.1); CARBON DIOXIDE 27.8 mmol/L (21.0-32.0); CHLORIDE - SERUM 105 mmol/L (98-107); CREATININE - SERUM 0.8 mg/dL (0.6-1.3); GLUCOSE 107 mg/dL (74-106); POTASSIUM - SERUM 3.9 mmol/L (3.5-5.1); PROTEIN - SERUM 7.7 g/dL (6.4-8.2); SODIUM 141 mmol/L (136-145); UREA NITROGEN 10 mg/dL (7-18); eGFR NON AFRICAN AMERICAN 78 mL/min (90-120)
[2019-04-27 12:35] LABS: ERYTHROCYTE SEDIMENTATION RATE 65 mm/hr (0-30)
== END | disposition home or self-care (01) ==
LOC: D.LAB 09:07
PROVIDERS: ATTEND Internal Medicine Gastroenterology
DX: K51.90 Ulcerative colitis, unspecified, without complications (principal)

== ENCOUNTER → 2019-10-22 09:54 | Outpatient (CLI) | payer BC | END | disposition home or self-care (01) | LOC: D.CT 09:54 | PROVIDERS: ATTEND Internal Medicine Cardiovascular Disease | DX: R91.8 Other nonspecific abnormal finding of lung field (principal); J84.9 Interstitial pulmonary disease, unspecified; I71.2 Thoracic aortic aneurysm, without rupture ==

== ENCOUNTER → 2020-03-07 09:29 | Outpatient (CLI) | payer BC | END | disposition home or self-care (01) | LOC: D.LAB 09:29 | PROVIDERS: ATTEND Internal Medicine Pulmonary Disease | DX: Z13.9 Encounter for screening, unspecified (principal) ==

== ENCOUNTER → 2020-03-09 07:27 | Outpatient (CLI) | payer BC | END | disposition home or self-care (01) | LOC: D.RT 07:27 | PROVIDERS: ATTEND Internal Medicine Pulmonary Disease | DX: J45.909 Unspecified asthma, uncomplicated (principal) ==

== ENCOUNTER → 2020-12-25 09:27 | Outpatient (CLI) | payer BC | END | disposition home or self-care (01) | LOC: D.CT 09:27 | PROVIDERS: ATTEND Internal Medicine Interventional Cardiology | DX: I71.4 Abdominal aortic aneurysm, without rupture (principal) ==